=== PATIENT | male | born 1950 | race Caucasian/White ===

== ENCOUNTER 2016-12-20 09:59 | Day surgery (SDC) | payer OTHER, MEDICARE ==
[2016-12-16 14:56] VITALS: BMI 27.4
[2016-12-20] MEDS ORDERED: PROPOFOL 20 ML ONE ×2 (10:40)
[2016-12-20 11:27] VITALS: PULSE 74
[2016-12-20 11:52] VITALS: BP 110/65; TEMP 98
== END 2016-12-20 12:02 | disposition home or self-care (01) ==
LOC: FASU-ENDO 09:59
PROVIDERS: ATTEND Internal Medicine Gastroenterology
PROC: 0DJD8ZZ Inspection of Lower Intestinal Tract, Via Natural or Artificial Opening Endoscopic (ICD-10-PCS; principal; 2016-12-20 10:44)
DX: Z86.010 Personal history of colon polyps (principal)

== ENCOUNTER 2018-09-14 07:58 | Day surgery (SDC) | payer OTHER, MEDICARE | END 2018-09-14 09:40 | disposition home or self-care (01) | LOC: FASU 07:58 ==

== ENCOUNTER 2022-06-17 08:04 | Day surgery (SDC) | payer OTHER, MEDICARE ==
[2022-06-14 16:26] VITALS: BMI 28.3
[2022-06-17 08:23] VITALS: RESP 16
[2022-06-17 09:37] VITALS: TEMP 98
[2022-06-17 09:55] VITALS: BP 110/58; PULSE 51
== END 2022-06-17 10:24 | disposition home or self-care (01) ==
LOC: FASU-ENDO 08:04
PROVIDERS: ATTEND Internal Medicine Gastroenterology
PROC: 0DJD8ZZ Inspection of Lower Intestinal Tract, Via Natural or Artificial Opening Endoscopic (ICD-10-PCS; principal; 2022-06-17 09:10)
DX: Z12.11 Encounter for screening for malignant neoplasm of colon (principal); Z86.010 Personal history of colon polyps